=== PATIENT | male | born 1970 | race Caucasian/White ===

== ENCOUNTER 2021-01-01 14:28 | Inpatient (IN) | payer MEDICARE, MEDICAID ==
[~2021-01-01] VITALS: Ht 180.3 cm; Wt 81.6 kg
[2021-01-01 14:58] LABS: HEMOGLOBIN 14.3 gm/dl (14.0-17.5); RED BLOOD COUNT 4.93 M/UL (4.20-5.50)
[2021-01-01 15:37] LABS: BUN/CREATININE RATIO 9 (0-10)
[2021-01-02 03:21] LABS: HEMOGLOBIN 14.2 gm/dl (14.0-17.5); RED BLOOD COUNT 4.89 M/UL (4.20-5.50)
[2021-01-02 03:23] LABS: WHITE BLOOD COUNT 2.1 K/UL (4.5-11.0)
[2021-01-02 03:41] LABS: BUN/CREATININE RATIO 12 (0-10)
[2021-01-02] MEDS ORDERED: EXCEDRIN MIGRA1 EACH PO (11:21)
[2021-01-03 07:49] LABS: HEMOGLOBIN 13.9 gm/dl (14.0-17.5); RED BLOOD COUNT 4.81 M/UL (4.20-5.50); WHITE BLOOD COUNT 9.7 K/UL (4.5-11.0)
[2021-01-03 08:16] LABS: BUN/CREATININE RATIO 18 (0-10)
--- NOTE | 2021-01-04 06:29 | NUR ---
PATIENT TE PULSE OX CORD
[2021-01-04 07:16] LABS: HEMOGLOBIN 13.4 gm/dl (14.0-17.5); RED BLOOD COUNT 4.62 M/UL (4.20-5.50); WHITE BLOOD COUNT 9.1 K/UL (4.5-11.0)
[2021-01-04 07:44] LABS: BUN/CREATININE RATIO 20 (0-10)
[2021-01-04] MEDS ORDERED: LEVOFLOXACIN750 MG PO (09:52)
[2021-01-04] MEDS ORDERED: VENTOLIN HFA 66.7 GM INH (09:52)
[2021-01-04] MEDS ORDERED: DECADRON6 MG PO (09:52)
--- NOTE | 2021-01-04 11:59 | NUR ---
1155 02 Sat 88% on room air.
--- NOTE | 2021-01-04 13:41 | NUR ---
1100 Patient stated he had to leave & requested AMA Paper to sign himself out. Dr Jiménez in [facility], informed of patient's request. Patient had taken his IV out & Telemetry off. Patient's 02 Sat checked - 88% on room air. Dr Jiménez told patient he needed oxygen to go home with, so he stated he would wait.
== END 2021-01-04 15:04 | disposition home or self-care (01) | DRG 871 ==
LOC: ER1 14:28 → M/S 18:24 → CDU 18:24 → M/S 01-02 22:04
PROVIDERS: Physician Assistant; ADMIT Internal Medicine
PROC: 3E0333Z Introduction of Anti-inflammatory into Peripheral Vein, Percutaneous Approach (ICD-10-PCS; principal; 2021-01-01)
PROC: XW033E5 Introduction of Remdesivir Anti-infective into Peripheral Vein, Percutaneous Approach, New Technology Group 5 (ICD-10-PCS; 2021-01-01)
DX: A41.89 Other specified sepsis (principal); U07.1 COVID-19; J12.82 Pneumonia due to coronavirus disease 2019; J96.01 Acute respiratory failure with hypoxia; J15.9 Unspecified bacterial pneumonia; E87.1 Hypo-osmolality and hyponatremia; E87.6 Hypokalemia; E86.0 Dehydration; R94.5 Abnormal results of liver function studies; Z87.891 Personal history of nicotine dependence; Z79.899 Other long term (current) drug therapy; Z79.82 Long term (current) use of aspirin
CPT/HCPCS: 36415; 36600; 71045; 80048; 80053; 82550; 82553; 82803; 83605; 83735; 83874; 84439; 84443; 84484; 85025; 85379; 85652; 87040; 94640; 94664; 94760; 99285; G0378; J0456; J0696; J1100; J1650; J3480; J7030; U0002